=== PATIENT | male | born 1995 | race Caucasian/White ===

== ENCOUNTER 2018-05-21 12:37 | Emergency (ER) | payer BC, OTHER ==
[2018-05-21 13:26] VITALS: BP 128/67
--- NOTE | 2018-05-21 14:32 | RAD ---
HISTORY: pain , trauma midfoot COMPARISONS: None VIEWS: 3 , Frontal, lateral, and oblique views of the right foot FINDINGS: BONE DENSITY: Normal. BONES: There is no displaced fracture. JOINTS: There is no arthropathy. ALIGNMENT: There is no dislocation. SOFT TISSUES: Unremarkable. OTHER FINDINGS: None. IMPRESSION: NO ACUTE OSSEOUS INJURY. IF SYMPTOMS PERSIST, RECOMMEND REPEAT IMAGING.
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
== END 2018-05-21 15:18 | disposition home or self-care (01) ==
LOC: UCCORT 12:37
DX: S90.31XA Contusion of right foot, initial encounter (principal); W50.0XXA Accidental hit or strike by another person, initial encounter; Y93.89 Activity, other specified; Y92.9 Unspecified place or not applicable
CPT/HCPCS: 99203; G0463

== ENCOUNTER 2018-11-12 15:42 | Emergency (ER) | payer BC ==
[2018-11-12 16:15] VITALS: BP 134/65
--- NOTE | 2018-11-12 17:40 | UC ---
Ear Complaint HPI - HPI Summary HPI Summary: 23-year-old male presents with complaints of left ear fullness with decreased hearing for the past several days. Associated with some moderate nasal congestion and clear nasal discharge. Denies fever, chills, ear pain, ear drainage, tinnitus, vertigo, sore throat, or cough. - History of Current Complaint Chief Complaint: UCEar Stated Complaint: LEFT EAR COMPLAINT Time Seen by Provider: 11/12/18 17:10 Hx Obtained From: Patient Pain Intensity: 0 - Allergies/Home Medications Allergies/Adverse Reactions: Allergies Allergy/AdvReac Type Severity Reaction Status Date / Time No Known Allergies Allergy Unverified 11/12/18 16:15 PMH/Surg Hx/FS Hx/Imm Hx Previously Healthy: Yes - Denies significant PMH - Surgical History Surgical History: None - Family History Known Family History: Positive: Non-Contributory - Social History Occupation: Employed Full-time Lives: Alone Alcohol Use: Occasionally Alcohol Amount: weekends Substance Use Type: Marijuana Substance Use Comment - Amount & Last Used: occasional Smoking Status (MU): Never Smoked Tobacco Review of Systems All Other Systems Reviewed And Are Negative: Yes Constitutional: Negative: Fever, Chills Eyes: Negative: Drainage, Eye Redness ENT: Positive: Ear Ache - See HPI, Nasal Discharge, Sinus Congestion. Negative : Sore Throat, Sinus Pain/Tenderness Respiratory: Negative: Shortness Of Breath, Cough Cardiovascular: Positive: Negative Gastrointestinal: Positive: Negative Genitourinary: Positive: Negative Musculoskeletal: Positive: Negative Neurological: Positive: Negative Is Patient Immunocompromised?: No Physical Exam - Summary Physical Exam Summary: GENERAL APPEARANCE: Well developed, well nourished, alert and cooperative, and appears to be in no acute distress. EYES: Conjunctiva clear. No drainage. Vision is grossly intact. EARS: External auditory canals clear. Right TM opaque with good cone of light. Left TM opaque with a few air bubble noted. No erythema. NOSE: Mild-moderate nasal congestion with mucosal erythema and edema. No nasal discharge. THROAT: Pharynx normal. No tonsilar inflammation, swelling, exudate, or lesions. Uvula midline. Oral cavity normal. Teeth and gingiva in good general condition. NECK: Neck supple, non-tender without lymphadenopathy. CARDIAC: Normal S1 and S2. No S3, S4 or murmurs. Rhythm is regular. There is no peripheral edema, cyanosis or pallor. Extremities are warm and well perfused. Capillary refill is less than 2 seconds. Peripheral pulses intact. LUNGS: Clear to auscultation without rales, rhonchi, wheezing or diminished breath sounds. ABDOMEN: Positive bowel sounds. Soft, nondistended, nontender. No guarding or rebound. No masses or hepatosplenomegally. MUSKULOSKELETAL: ROM intact to all extremities. No joint erythema or tenderness. Normal muscular development. Normal gait. SKIN: Skin normal color, texture and turgor with no lesions or eruptions. Triage Information Reviewed: Yes Vital Signs: Initial Vital Signs Temp 98.6 F 11/12/18 16:13 Pulse 82 11/12/18 16:13 Resp 16 11/12/18 16:13 BP 134/65 11/12/18 16:13 Pulse Ox 100 11/12/18 16:13 Vital Signs Reviewed: Yes Ear Complaint Course/Dx - Course Course Of Treatment: 23-year-old male presents with complaints of left ear fullness with decreased hearing for the past several days. Associated with some moderate nasal congestion and clear nasal discharge. Denies fever, chills , ear pain, ear drainage, tinnitus, vertigo, sore throat, or cough. Afebrile. Vital signs stable. Exam reveals a young adult male in no acute distress with mild to moderate nasal congestion, clear left external auditory canal, an intact left TM that is opaque with a few air bubbles noted without erythema, and otherwise unremarkable exam. Suspect that he has some serous otitis with eustachian tube dysfunction and I'm recommending that he started on a fluticasone nasal spray 2 sprays each nostril once a day as well as using an [id number] decongestant. I have given a referral to ENT if his symptoms do not improve within 7 days. Patient is requesting referral to Dr. Paredes as he has taken care of several of his family members. Anticipatory guidance and warning symptoms were reviewed with the patient. Verbalizes understanding and agrees with plan of care. - Differential Dx/Diagnosis Differential Diagnosis/HQI/PQRI: Cerumen Impaction, Otitis Externa, Otitis Media , Other - Serous otitis, eustachian tube dysfunction Provider Diagnosis: Acute serous otitis media of left ear, Eustachian tube dysfunction Discharge - Sign-Out/Discharge Documenting (check all that apply): Patient Departure All imaging exams completed and their final reports reviewed: No Studies - Discharge Plan Condition: Stable Disposition: HOME Prescriptions: Fluticasone NASAL SPRAY 50MCG* [Flonase NASAL SPRAY 50MCG*] 2 spray BOTH NARES DAILY #1 btl Patient Education Materials: Serous Otitis Media (ED) Referrals: No Primary Care Phys,NOPCP [Primary Care Provider] - Maurice Paredes MD [Medical Doctor] - Additional Instructions: Your exam showed no evidence of ear infection or ear wax build up. I suspect with your history of nasal congestion that you may have a condition called serous otitis. Start fluticasone nasal spray 2 sprays each nostril once a day for at least 2 weeks. You can also use an over the counter decongestant such as Sudafed to help with the congestion. Follow with Dr. Paredes in 7 days if there is no improvement in symptoms. Seek immediate medical attention if develop fever greater than 100.5 F, have worsening ear pain, drainage or bleeding from the ear, or any worsening of symptoms. - Billing Disposition and Condition Condition: STABLE Disposition: Home - Attestation Statements Provider Attestation: I was available for consult. This patient was seen by the DELROY. The patient was not presented to, seen by, or examined by me. EK
== END 2018-11-12 17:49 | disposition home or self-care (01) ==
LOC: UCCORT 15:42
DX: H65.92 Unspecified nonsuppurative otitis media, left ear (principal); H69.82 Other specified disorders of Eustachian tube, left ear; R09.81 Nasal congestion; R09.89 Other specified symptoms and signs involving the circulatory and respiratory systems
CPT/HCPCS: 99212; G0463

== ENCOUNTER 2018-11-19 17:30 | Emergency (ER) | payer BC ==
[2018-11-19 18:42] VITALS: BP 139/75
--- NOTE | 2018-11-19 18:57 | UC ---
Ear Complaint HPI - HPI Summary HPI Summary: 23-year-old male comes in with a chief complaint of left here decreased hearing. Patient had some upper respiratory tract infection symptoms over the last week and a half. He noticed decreased hearing left ear. He was on nasal steroid reports also being on a Z-Gabe. He saw an granite block paver who found some decreased hearing the left ear. Radiologist recommended a course of steroids. Patient denies any pain. Still has mild nasal congestion. Also mild sore throat. - History of Current Complaint Chief Complaint: UCGeneralIllness Stated Complaint: LEFT EAR COMPLAINT Time Seen by Provider: 11/19/18 18:37 Pain Intensity: 0 - Allergies/Home Medications Allergies/Adverse Reactions: Allergies Allergy/AdvReac Type Severity Reaction Status Date / Time No Known Allergies Allergy Unverified 11/19/18 18:42 PMH/Surg Hx/FS Hx/Imm Hx Previously Healthy: Yes - Surgical History Surgical History: None - Family History Known Family History: Positive: Non-Contributory - Social History Alcohol Use: Occasionally Alcohol Amount: weekends Substance Use Type: Marijuana Substance Use Comment - Amount & Last Used: occasional Smoking Status (MU): Never Smoked Tobacco Review of Systems All Other Systems Reviewed And Are Negative: Yes Constitutional: Positive: Negative Skin: Positive: Negative Eyes: Positive: Negative ENT: Positive: Sore Throat, Ear Ache, Nasal Discharge Respiratory: Positive: Negative Cardiovascular: Positive: Negative Gastrointestinal: Positive: Negative Motor: Positive: Negative Neurovascular: Positive: Negative Musculoskeletal: Positive: Negative Neurological: Positive: Negative Psychological: Positive: Negative Is Patient Immunocompromised?: No Physical Exam Triage Information Reviewed: Yes Appearance: Well-Appearing, No Pain Distress, Well-Nourished Vital Signs: Initial Vital Signs Temp 98.4 F 11/19/18 18:38 Pulse 89 11/19/18 18:38 Resp 18 11/19/18 18:38 BP 139/75 11/19/18 18:38 Pulse Ox 99 11/19/18 18:38 Vital Signs Reviewed: Yes Eye Exam: Normal Eyes: Positive: Conjunctiva Clear ENT: Positive: Pharynx normal, Nasal congestion, Nasal drainage, TM bulging - LEFT, TM red - LEFT Neck exam: Normal Neck: Positive: Supple Respiratory: Positive: Lungs clear, Normal breath sounds, No respiratory distress Cardiovascular: Positive: RRR Musculoskeletal Exam: Normal Musculoskeletal: Positive: Strength Intact, ROM Intact Neurological Exam: Normal Neurological: Positive: Alert, Muscle Tone Normal Psychological Exam: Normal Psychological: Positive: Age Appropriate Behavior Skin Exam: Normal Ear Complaint Course/Dx - Course Course Of Treatment: Patient's saw a granite block paver. He has planned follow-up. Also recommended follow-up with ENT. - Differential Dx/Diagnosis Provider Diagnosis: Left serous otitis media Discharge - Sign-Out/Discharge Documenting (check all that apply): Patient Departure All imaging exams completed and their final reports reviewed: No Studies - Discharge Plan Condition: Stable Disposition: HOME Prescriptions: Amoxicillin/Clavulanate TAB* [Augmentin TAB 875*] 875 mg PO BID #20 tab predniSONE TAB* [Deltasone 20 MG TAB*] 0 mg PO DAILY #12 tab Patient Education Materials: Serous Otitis Media (ED) Referrals: Maurice Garcias MD [Medical Doctor] - Jeremias Ro MD [Medical Doctor] - Additional Instructions: FOLLOW UP WITH ENT, DR GARCIAS OR DR RO. GET RECHECKED FOR ANY WORSENING OF YOUR CONDITION OR QUESTIONS OR CONCERNS. - Billing Disposition and Condition Condition: STABLE Disposition: Home
== END 2018-11-19 19:05 | disposition home or self-care (01) ==
LOC: UCCORT 17:30
DX: H65.92 Unspecified nonsuppurative otitis media, left ear (principal); R09.81 Nasal congestion; J02.9 Acute pharyngitis, unspecified
CPT/HCPCS: 99212; G0463